=== PATIENT | female | born 1995 ===

== ENCOUNTER → 2016-07-23 | Outpatient (CLI) | payer OTHER ==
--- NOTE | 2016-07-24 05:52 | REP ---
RIGHT ANKLE, FOUR VIEWS: PRIORS: None. FINDINGS: No acute fracture or destructive osseous lesion. The mortise is intact. Signed by Fabrice Azul DO 07/24/2016 12:04 P
== END ==
LOC: M LRY 11:24
PROVIDERS: ATTEND Nurse Practitioner Family
DX: S99.911A Unspecified injury of right ankle, initial encounter (principal); X58.XXXA Exposure to other specified factors, initial encounter; Y92.9 Unspecified place or not applicable; Y93.9 Activity, unspecified; Y99.9 Unspecified external cause status